=== PATIENT | male | born 1955 | race Caucasian/White ===

== ENCOUNTER 2016-06-15 07:04 | Day surgery (SDC) | payer BC ==
[2016-06-15] MEDS ORDERED: Sodium Chloride 0.9% 1,000 ML IV SCH (07:45)
[2016-06-15] MEDS ORDERED: Midazolam 1 MG/ML 2 ML SDV ONE (07:52)
[2016-06-15] MEDS ORDERED: Propofol 200 MG/20 ML SDV ONE ×2 (07:52→09:37)
[2016-06-15] MEDS ORDERED: fentaNYL 100 MCG/2 ML SDV ONE (07:52)
[2016-06-15 11:15] VITALS: BP 145/101
--- NOTE | 2016-06-16 11:21 | OR ---
DATE OF PROCEDURE: 06/15/2016 PROCEDURE: Colonoscopy. FINDINGS: 1. Transverse colon polyp, 5 mm, completely removed using cold biopsy forceps. 2. Sigmoid colon polyp, 1 cm, completely removed using hot snare. COMPLICATIONS: None. KENNEL OPERATOR: None. ANESTHETIC: MAC. PREOPERATIVE DIAGNOSIS: Screening colonoscopy for family history of colorectal cancer. POSTOPERATIVE DIAGNOSIS: Screening colonoscopy for family history of colorectal cancer. INDICATION: The risks, benefits, alternatives, and limitations, including, but not limited to infection, bleeding, and perforation were explained to the patient and wished to proceed. PROCEDURE IN DETAIL: The patient was placed in left lateral decubitus position. Digital rectal exam was performed without abnormality. The scope was introduced and advanced atraumatically to the ileocecal valve. The scope was brought back to the ascending, transverse, descending colon, and retroflexed. In the transverse colon, there was a 5-mm polyp, which was identified and completely removed using cold biopsy forceps. In the sigmoid colon, there was 1 cm polyp, which was completely removed using hot snare. The patient was also noted to have diverticulosis, which was moderate limited sigmoid colon. No other abnormalities on retroflexion. The patient tolerated the procedure well. Elvis Diane MD /[id number]
== END 2016-06-15 11:05 | disposition home or self-care (01) ==
LOC: JP.SDS 07:04
PROVIDERS: ATTEND Surgery
PROC: 0DBN8ZX Excision of Sigmoid Colon, Via Natural or Artificial Opening Endoscopic, Diagnostic (ICD-10-PCS; principal; 2016-06-15)
PROC: 0DBL8ZX Excision of Transverse Colon, Via Natural or Artificial Opening Endoscopic, Diagnostic (ICD-10-PCS; 2016-06-15)
DX: Z12.11 Encounter for screening for malignant neoplasm of colon (principal); D12.5 Benign neoplasm of sigmoid colon; D12.3 Benign neoplasm of transverse colon
CPT/HCPCS: 45380; J2250; J2704; J3010; J7040; 88305